=== PATIENT | male | born 1945 | race Caucasian/White ===

== ENCOUNTER → 2016-11-23 | Outpatient (CLI) | payer OTHER, MEDICARE ==
[~2016-11-23] MED LIST: ATOR-22 PO; CMD5 PO; CRDCD120 PO; HYT/2 PO; LISI20TA55 PO; METO100T44 PO
[2016-11-23 11:59] LABS: BASO % 0.8 %; BASO ABS # 0.05 K/uL (0-0.2); COMPLETE YES; EOS % 2.8 %; HEMATOCRIT 43.6 % (42-52); IG% 0.2 %; LYMPH % 33.2 %; MEAN CELL VOLUME 85.3 fL (80-100); MEAN CORPUSCULAR HEMOGLOBIN 27.8 pg (25-34); MEAN CORPUSCULAR HGB CONC 32.6 g/dl (32-36); MEAN PLATELET VOLUME 11.7 fL (7.4-10.4); MONO % 9.2 %; NEUT % 53.8 %; PLATELET COUNT 191 K/uL (130-400); RED BLOOD COUNT 5.11 M/uL (4.7-6.1); WHITE BLOOD COUNT 6.33 K/uL (4.8-10.8)
[2016-11-23 12:47] LABS: ESTIMATED AVERAGE GLUCOSE 128 mg/dl; HA1C FLAG Normal (Normal)
== END | disposition home or self-care (01) ==
LOC: C.LABBFT 08:38
PROVIDERS: ATTEND Internal Medicine
DX: E11.9 Type 2 diabetes mellitus without complications (principal); D64.9 Anemia, unspecified; I48.91 Unspecified atrial fibrillation

== ENCOUNTER → 2017-06-12 | Outpatient (CLI) | payer OTHER, MEDICARE ==
[2017-06-12 12:03] LABS: BASO % 0.9 %; BASO ABS # 0.06 K/uL (0-0.2); COMPLETE YES; EOS % 2.7 %; HEMATOCRIT 40.7 % (42-52); IG% 0.2 %; LYMPH % 30.8 %; LYMPH ABS # 2.05 K/uL (1.2-3.4); MEAN CELL VOLUME 85.3 fL (80-100); MEAN CORPUSCULAR HEMOGLOBIN 28.1 pg (25-34); MEAN CORPUSCULAR HGB CONC 32.9 g/dl (32-36); MEAN PLATELET VOLUME 11.7 fL (7.4-10.4); MONO % 8.1 %; NEUT % 57.3 %; PLATELET COUNT 170 K/uL (130-400); RED BLOOD COUNT 4.77 M/uL (4.7-6.1); WHITE BLOOD COUNT 6.66 K/uL (4.8-10.8)
[2017-06-12 12:10] LABS: ESTIMATED AVERAGE GLUCOSE 131 mg/dl; HA1C FLAG Normal (Normal)
[2017-06-12 12:15] LABS: URINE APPEARANCE CLEAR (CLEAR); URINE BILIRUBIN NEG (NEG); URINE COLOR YELLOW; URINE EPITHELIAL CELL AUTO 0-5 /lpf (0-5); URINE NITRITE NEG (NEG); URINE SPECIFIC GRAVITY 1.019 (1.000-1.030); UROBILINOGEN NEG (NEG); ZZUR CULT IF INDIC CLEAN CATCH NO
[2017-06-12 12:17] LABS: ALT/SGPT 33 U/L (12-78); BLOOD UREA NITROGEN 15 mg/dl (7-18); CALCIUM 8.6 mg/dl (8.5-10.1); CARBON DIOXIDE 26 mmol/L (21-32); CHLORIDE 105 mmol/L (98-107); CHOLESTEROL 106 mg/dl (0-200); CREATININE 1.04 mg/dl (0.60-1.40); GLUCOSE 119 mg/dl (70-99); POTASSIUM 3.3 mmol/L (3.5-5.1); SODIUM 141 mmol/L (136-145); TRIGLYCERIDES 60 mg/dl (0-150); VERY LOW DENSITY LIPOPROT CALC 12 mg/dl
[2017-06-12 12:19] LABS: MANUAL MICROSCOPIC REQUIRED? NO; REVIEW REQ? NO
[2017-06-12 12:21] LABS: ALKALINE PHOSPHATASE 90 U/L (45-117); AST/SGOT 22 U/L (15-37); CHOLESTEROL/HDL RATIO 2.3; HDL CHOLESTEROL 47 mg/dl; LDL CHOLESTEROL CALCULATED 47 mg/dl
[2017-06-12 13:00] LABS: RATIO 7.6 mcg/mg (0-30.0)
== END | disposition home or self-care (01) ==
LOC: C.LABBFT 09:52
PROVIDERS: ATTEND Internal Medicine
DX: E11.9 Type 2 diabetes mellitus without complications (principal); I35.1 Nonrheumatic aortic (valve) insufficiency; E78.5 Hyperlipidemia, unspecified; N40.0 Benign prostatic hyperplasia without lower urinary tract symptoms

== ENCOUNTER → 2017-11-25 | Outpatient (CLI) | payer OTHER, MEDICARE ==
[2017-11-25 12:47] LABS: BLOOD UREA NITROGEN 19 mg/dl (7-18); CALCIUM 8.8 mg/dl (8.5-10.1); CARBON DIOXIDE 30 mmol/L (21-32); CREATININE 1.08 mg/dl (0.60-1.40); GLUCOSE 116 mg/dl (70-99); POTASSIUM 3.4 mmol/L (3.5-5.1); SODIUM 142 mmol/L (136-145)
== END | disposition home or self-care (01) ==
LOC: C.LABBFT 09:48
PROVIDERS: ATTEND Internal Medicine
DX: E87.6 Hypokalemia (principal)

== ENCOUNTER → 2017-12-05 | Outpatient (CLI) | payer OTHER, MEDICARE ==
[2017-12-05 12:32] LABS: BASO % 0.6 %; BASO ABS # 0.04 K/uL (0-0.2); EOS % 2.8 %; EOS ABS # 0.19 K/uL (0-0.5); HEMATOCRIT 40.8 % (42-52); HEMOGLOBIN 13.3 g/dL (14.0-18.0); IG# 0.01 K/uL (0.00-0.02); LYMPH % 27.1 %; LYMPH ABS # 1.81 K/uL (1.2-3.4); MEAN CELL VOLUME 84.6 fL (80-100); MEAN CORPUSCULAR HEMOGLOBIN 27.6 pg (25-34); MEAN CORPUSCULAR HGB CONC 32.6 g/dl (32-36); MEAN PLATELET VOLUME 11.7 fL (7.4-10.4); MONO % 9.4 %; MONO ABS # 0.63 K/uL (0.11-0.59); PLATELET COUNT 168 K/uL (130-400); RED CELL DISTRIBUTION WIDTH CV 14.7 % (11.5-14.5); RED CELL DISTRIBUTION WIDTH SD 45.7 fL (36.4-46.3); WHITE BLOOD COUNT 6.68 K/uL (4.8-10.8)
[2017-12-05 12:56] LABS: HEMOGLOBIN A1C 6.3 % (4.5-5.6)
[2017-12-05 13:18] LABS: BLOOD UREA NITROGEN 17 mg/dl (7-18); CALCIUM 8.6 mg/dl (8.5-10.1); CARBON DIOXIDE 28 mmol/L (21-32); CREATININE 1.07 mg/dl (0.60-1.40); GLUCOSE 111 mg/dl (70-99); POTASSIUM 3.1 mmol/L (3.5-5.1); SODIUM 142 mmol/L (136-145)
== END | disposition home or self-care (01) ==
LOC: C.LABBFT 08:56
PROVIDERS: ATTEND Internal Medicine
DX: E11.9 Type 2 diabetes mellitus without complications (principal); D64.9 Anemia, unspecified

== ENCOUNTER → 2018-02-07 | Outpatient (CLI) | payer OTHER, MEDICARE ==
[2018-02-07 12:37] LABS: BLOOD UREA NITROGEN 19 mg/dl (7-18); CARBON DIOXIDE 24 mmol/L (21-32); CREATININE 0.99 mg/dl (0.60-1.40); GLUCOSE 111 mg/dl (70-99); SODIUM 141 mmol/L (136-145)
== END | disposition home or self-care (01) ==
LOC: C.LABBFT 09:31
PROVIDERS: ATTEND Physician Assistant Medical
DX: I10 Essential (primary) hypertension (principal)

== ENCOUNTER → 2018-03-10 | Outpatient (CLI) | payer OTHER, MEDICARE ==
[2018-03-10 12:46] LABS: BLOOD UREA NITROGEN 20 mg/dl (7-18); CALCIUM 8.9 mg/dl (8.5-10.1); CARBON DIOXIDE 24 mmol/L (21-32); CREATININE 1.07 mg/dl (0.60-1.40); GLUCOSE 113 mg/dl (70-99); POTASSIUM 4.3 mmol/L (3.5-5.1); SODIUM 141 mmol/L (136-145)
== END | disposition home or self-care (01) ==
LOC: C.LABBFT 09:16
PROVIDERS: ATTEND Physician Assistant Medical
DX: E87.6 Hypokalemia (principal)

== ENCOUNTER 2021-04-09 19:06 | Observation (INO) ==
[2021-04-09 20:28] LABS: Basophils # (auto) 0.05 K/uL (0-0.2); Basophils % (auto) 0.8 %; Eosinophils # (auto) 0.15 K/uL (0-0.5); Eosinophils % (auto) 2.3 %; Hematocrit (blood only) 38.4 % (42-52); Hemoglobin 12.4 g/dL (14.0-18.0); Immature Granulocytes # (auto) 0.01 K/uL (0.00-0.02); Immature Granulocytes % (auto) 0.2 %; Lymphocytes # (auto) 1.61 K/uL (1.2-3.4); Lymphocytes % (auto) 24.8 %; Mean Corpuscular Hgb Conc 32.3 g/dL (32-36); Mean Corpuscular Volume 89.9 fL (80-100); Mean Platelet Volume 11.4 fL (7.4-10.4); Monocytes # (auto) 0.62 K/uL (0.11-0.59); Monocytes % (auto) 9.6 %; Neutrophils # (auto) 4.04 K/uL (1.4-6.5); Neutrophils % (auto) 62.3 %; Platelet Count 228 K/uL (130-400); RDW Coefficient of Variation 16.6 % (11.5-14.5); RDW Standard Deviation 55.3 fL (36.4-46.3); Red Blood Count 4.27 M/uL (4.7-6.1); White Blood Count 6.48 K/uL (4.8-10.8)
[2021-04-09] MEDS ORDERED: NITROGLYCERIN 2% OINTMENT 30GM TUBE EXT STA (20:35)
[2021-04-09 20:40] LABS: Alanine Aminotransferase 29 U/L (12-78); BUN Creatinine Ratio 21.5 (10-20); Blood Urea Nitrogen 22 mg/dl (7-18); Calcium 8.2 mg/dl (8.5-10.1); Carbon Dioxide 26 mmol/L (21-32); Chloride 111 mmol/L (98-107); Creatinine Clr Calc Pharmacy 71.8 ml/min; Est GFR (Non-African American) 69.9 ml/min; Glucose 109 mg/dl (70-99); Lipase 141 U/L (73-393); Sodium 142 mmol/L (136-145)
[2021-04-09 20:42] LABS: Albumin Globulin Ratio 0.8 (0.9-2); Alkaline Phosphatase 121 U/L (45-117); Bilirubin,Total 0.3 mg/dl (0.2-1); Globulin 3.9 gm/dl (2.5-4.0); Total Protein 6.9 gm/dl (6.4-8.2); Troponin I < 0.015 ng/ml (0-0.045)
[2021-04-09 20:54] LABS: INR 3.3 (0.9-1.1); Partial Thromboplastin Ratio 1.4; Prothrombin Time 30.1 Seconds (9.0-12.0)
[2021-04-09 20:59] LABS: Potassium 4.3 mmol/L (3.5-5.1)
--- NOTE | 2021-04-09 22:45 | History & Physical Report ---
Date of Service April 09, 2021 Assessment & Plan (1) Left-sided chest pain: Plan: Left-sided chest pain/left arm pain/H fibrillation/hypertension/aortic insufficiency/aortic aneurysm/mitral vegetation/aortic root dilatation/mitral regurgitation- The patient will be admitted to telemetry for serial cardiac enzymes, serial EKG's, cardiac rhythm monitoring and a 2-D echocardiogram with Dopplers. Normal troponin, and no acute EKG changes Continue aspirin 81 daily, metoprolol tartrate 25 mg p.o. twice daily Klor-Con 1 once p.o. every morning nitroglycerin sublingual as needed (2) Atrial fibrillation: Plan: See above (3) AI (aortic insufficiency): Plan: See above (4) Hypertension: Plan: See above (5) Aortic aneurysm: Plan: See above (6) Mitral regurgitation: Plan: See above (7) Aortic root dilatation: Plan: See above (8) [facility] (current) use of anticoagulants: Plan: Takes warfarin 5 mg every evening, with INR upon admission 3.3. Hold tomorrow's dose, follow daily PT/INR, and tentative restart of warfarin on 04/11 (9) Diabetes mellitus, type 2: Plan: On note specific medication. Placed on Accu-Cheks before meals and at bedtime with NovoLog coverage per scale Check hemoglobin A1c (10) Hyperlipidemia: Plan: Continue atorvastatin 10 mg daily. Check a fasting lipid panel (11) Benign prostatic hyperplasia with urinary obstruction and other lower urinary tract symptoms: Plan: BPH with LUTS- Continue finasteride and Flomax, hold Terazosin. (12) Parkinsonism: Plan: Continue with Toprol levodopa History of Present Illness Chief Complaint: The patient presents to the emergency department with complaint of acute onset of left-sided chest pain and left arm pain, that was improved by 3 sublingual nitroglycerin given to him by nurses. Primary Care Provider: Venkata Gan MD The patient is a 76-year-old male with a past medical history noting aortic insufficiency, BPH with LUTS, obesity, diabetes mellitus type 2, long-term use of anticoagulants, aortic root Dillow Tat[place], mitral regurgitation, hypertension, hyperparathyroidism, hyperlipidemia, atrial fibrillation and aortic aneurysm. Patient presents with symptoms as noted above, however, because they were not completely resolved, he was sent to the ED for assessment. By the time of arrival to the ED, his symptoms have resolved, and have not recurred since. Allergies Allergy/AdvReac Type Severity Reaction Status Date / Time amoxicillin Allergy Intermediate Hives Verified 04/09/21 20:42 Home Medications Medication Instructions Recorded Confirmed Type blood sugar diagnostic (OneTouch #50 ea 11/10/20 03/15/21 Rx Verio test strips) blood-glucose meter (OneTouch #1 ea 11/10/20 03/15/21 Rx Verio Meter) lancets 30 gauge (OneTouch Delica #100 ea 11/11/20 03/15/21 Rx Lancets) warfarin 5 mg tablet 5 mg PO PM 12/17/20 04/09/21 History atorvastatin 20 mg tablet 10 mg PO HS tab 03/13/21 04/09/21 History carbidopa 25 mg-levodopa 100 mg 1 tab PO TID tab 03/13/21 04/09/21 History disintegrating tablet famotidine 20 mg tablet 20 mg PO BID 03/13/21 04/09/21 History fluoxetine 20 mg capsule 20 mg PO QAM 03/13/21 04/09/21 History folic acid 1 mg tablet 2 mg PO QAM tab 03/13/21 04/09/21 History magnesium oxide 400 mg PO QAM 03/13/21 04/09/21 History tamsulosin 0.4 mg capsule (Flomax) 0.4 mg PO HS 03/13/21 04/09/21 History acetaminophen 325 mg tablet 650 mg PO Q6H PRN 04/09/21 04/09/21 History (Tylenol) acetaminophen 325 mg tablet 650 mg PO QAM 04/09/21 04/09/21 History (Tylenol) bisacodyl 10 mg rectal suppository 10 mg GA DAILY PRN 04/09/21 04/09/21 History cyanocobalamin (vitamin B-12) 100 100 mcg PO QAM 04/09/21 04/09/21 History mcg tablet diclofenac sodium 1 % topical gel 2 - 4 g TOPICAL UD PRN 04/09/21 04/09/21 History docusate sodium 100 mg capsule 100 mg PO BID 04/09/21 04/09/21 History finasteride 5 mg tablet 5 mg PO QAM 04/09/21 04/09/21 History metoprolol tartrate 25 mg tablet 25 mg PO BID 04/09/21 04/09/21 History nitroglycerin 0.4 mg sublingual 0.4 mg SUBLINGUAL UD 04/09/21 04/09/21 History tablet polyethylene glycol 3350 17 gram 17 g PO QAM 04/09/21 04/09/21 History oral powder packet (Miralax) potassium chloride 20 mEq 20 meq PO QAM 04/09/21 04/09/21 History tablet,extended release sennosides 8.6 mg tablet (senna) 8.6 mg PO HS PRN 04/09/21 04/09/21 History simethicone 80 mg chewable tablet 80 mg PO Q6H PRN 04/09/21 04/09/21 History terazosin 5 mg capsule 5 mg PO DAILY 04/09/21 04/09/21 History Past Med/Surg History Medical History (Updated 04/09/21 @ 23:47 by Arnel Yoder MD) Aortic aneurysm Atrial fibrillation FOLLOWED BY DR. SAVAGE BPH (benign prostatic hyperplasia) Diabetes mellitus, type 2 History of skin cancer Hyperlipidemia Hyperparathyroidism Hypertension Mitral regurgitation On anticoagulant therapy Parkinsonism Surgical History History of cataract surgery RT/LEFT History of colonoscopy History of colonoscopy History of parathyroid surgery History of tooth extraction Family History Father Colon cancer Prostate cancer Stroke syndrome Colorectal cancer Family/Other Colon cancer Sister Diabetes Stroke syndrome Other No family history of adverse response to anesthesia Denies family history of Ovarian cancer Breast cancer Social History Smoking Status: Former smoker Age Started Using Tobacco: 17; Age Quit Using Tobacco: 31; packs per day: 0.5; Second Hand Exposure: No; Hx Alcohol Use: No Hx Substance Use: No Preferred Language: [place] Hearing Ability: Normal Sterile Instrument Technician Required: No Beliefs That Will Affect Care: None marital status: / Current Living Situation: Family Current Living Situation Comment: WITH SON current occupational status: retired Feels Safe at Home: Yes Childhood Exposure to Second-Hand Smoke: No caffeine: Yes Dental Care, Regularly: Yes Physical Activity Frequency: Does not Exercise Seatbelt Use: always Assistive Devices: None Review of Systems Review of Systems: The patient denies palpitations, shortness of breath, dyspnea on exertion, cough, lower extremity swelling, sore throat, fevers, chills, sweats, fatigue, nausea, vomiting, diarrhea , constipation, abdominal pain, pelvic pain, blood in urine or stool, dysuria, urinary frequency or urgency, lightheadedness, dizziness, headache, memory loss, loss of consciousness, rash, abnormal bruising or bleeding, imbalance, focal or generalized weakness, numbness or tingling in arms or legs, generalized arthralgias or myalgias, back or neck pain, or night sweats. The review of systems is otherwise negative other than for that already noted above, and at least 10 systems have been reviewed. Physical Exam Physical Exam: The patient is awake, alert and oriented 3, well developed and well nourished, normocephalic and atraumatic, lying in bed and in no acute distress. HEENT--PERRL, EOMI, mucous membranes and oropharynx normal. Neck--supple. No JVD. No bruits. Thyroid normal, trachea midline, no adenopathy. Heart--normal S1 and S2. No murmurs, rubs or gallops. Lungs--clear bilaterally, no respiratory distress, no accessory muscle use. Abdomen--normal bowel sounds and soft. Nontender. Nondistended. Extremities--no cyanosis or clubbing. No edema. Dermatologic--normal skin turgor, normal color, no abnormal lymph nodes, no rash. Neurologic--cranial nerves II through XII grossly intact. Rheumatologic--decreased range of motion left arm and left leg due to previous stroke Psychiatric--normal affect. Results & Data Results & Data ([facility]) Vital Signs (Past 12 Hours) Vital Signs Temp Pulse Resp BP Pulse Ox 04/09/21 21:30 75 20 128/75 97 04/09/21 21:00 75 19 122/70 97 04/09/21 20:30 80 26 H 127/69 98 04/09/21 20:00 69 27 H 122/67 98 04/09/21 19:30 73 31 H 106/65 97 04/09/21 19:12 75 26 H 106/67 95 04/09/21 19:08 98.6 F 68 16 106/67 97 Laboratory Results Laboratory Results WBC 6.48 K/uL (4.8-10.8) 04/09/21 19:15 RBC 4.27 M/uL (4.7-6.1) L 04/09/21 19:15 Hgb 12.4 g/dL (14.0-18.0) L 04/09/21 19:15 Hct 38.4 % (42-52) L 04/09/21 19:15 MCV 89.9 fL (80-100) 04/09/21 19:15 MCH 29.0 pg (25-34) 04/09/21 19:15 MCHC 32.3 g/dL (32-36) 04/09/21 19:15 RDW Std Deviation 55.3 fL (36.4-46.3) H 04/09/21 19:15 RDW Coeff of Amos 16.6 % (11.5-14.5) H 04/09/21 19:15 Plt Count 228 K/uL (130-400) 04/09/21 19:15 MPV 11.4 fL (7.4-10.4) H 04/09/21 19:15 Immature Gran % (Auto) 0.2 % 04/09/21 19:15 Neut % (Auto) 62.3 % 04/09/21 19:15 Lymph % (Auto) 24.8 % 04/09/21 19:15 [place] % (Auto) 9.6 % 04/09/21 19:15 Eos % (Auto) 2.3 % 04/09/21 19:15 Baso % (Auto) 0.8 % 04/09/21 19:15 Neut # (Auto) 4.04 K/uL (1.4-6.5) 04/09/21 19:15 Lymph # (Auto) 1.61 K/uL (1.2-3.4) 04/09/21 19:15 [place] # (Auto) 0.62 K/uL (0.11-0.59) H 04/09/21 19:15 Eos # (Auto) 0.15 K/uL (0-0.5) 04/09/21 19:15 Baso # (Auto) 0.05 K/uL (0-0.2) 04/09/21 19:15 Immature Gran # (Auto) 0.01 K/uL (0.00-0.02) 04/09/21 19:15 PT 30.1 Seconds (9.0-12.0) H 04/09/21 20:34 INR 3.3 (0.9-1.1) H 04/09/21 20:34 APTT 37.0 Seconds (21.0-31.0) H 04/09/21 20:34 PTT Ratio 1.4 04/09/21 20:34 Sodium 142 mmol/L (136-145) 04/09/21 19:15 Potassium 4.3 mmol/L (3.5-5.1) 04/09/21 20:34 Chloride 111 mmol/L (98-107) H 04/09/21 19:15 Carbon Dioxide 26 mmol/L (21-32) 04/09/21 19:15 Anion Gap 6.0 (3-11) 04/09/21 19:15 BUN 22 mg/dl (7-18) H 04/09/21 19:15 Creatinine 1.04 mg/dl (0.6-1.4) 04/09/21 19:15 Est Cr Clr Drug Dosing 71.8 ml/min 04/09/21 19:15 Est GFR ( Amer) 81.0 ml/min 04/09/21 19:15 Est GFR (Non-Af Amer) 69.9 ml/min 04/09/21 19:15 BUN/Creatinine Ratio 21.5 (10-20) H 04/09/21 19:15 Glucose 109 mg/dl (70-99) H 04/09/21 19:15 Calcium 8.2 mg/dl (8.5-10.1) L 04/09/21 19:15 Total Bilirubin 0.3 mg/dl (0.2-1) 04/09/21 19:15 AST 45 U/L (15-37) H 04/09/21 20:34 ALT 29 U/L (12-78) 04/09/21 19:15 Alkaline Phosphatase 121 U/L (45-117) H 04/09/21 19:15 Troponin I < 0.015 ng/ml (0-0.045) 04/09/21 19:15 Total Protein 6.9 gm/dl (6.4-8.2) 04/09/21 19:15 Albumin 3.0 gm/dl (3.4-5.0) L 04/09/21 19:15 Globulin 3.9 gm/dl (2.5-4.0) 04/09/21 19:15 Albumin/Globulin Ratio 0.8 (0.9-2) L 04/09/21 19:15 Lipase 141 U/L (73-393) 04/09/21 19:15 COVID-19 Eval Order Covid19 at [facility] 04/09/21 22:06 SARS-CoV-2 (PCR) NEGATIVE (Negative) 04/09/21 22:06 ECG Additional Comments: TAMELA GRACE ID:[id number] 09-APR-2021 19:11:39 [facility]- EDSTAT ROUTINE RETRIEVAL Atrial fibrillation Left axis deviation Right bundle branch block Abnormal ECG When compared with ECG of 30-DEC-2020 18:42, Previous ECG has undetermined rhythm, needs review Criteria for Inferior infarct are no longer Present Inverted T waves have replaced nonspecific T wave abnormality in Inferior leads 25mm/s 10mm/mV 150Hz 9.0.9 12SL 241 JUAN CARLOS: 15 Unconfirmed Vent. rate 81 BPM GA interval * ms QRS duration 150 ms QT/QTc 418/485 ms P-R-T axes * -75 -8 1945 (76 yr) Male 1in 1lb Room:7 Loc:15 Ice Cutter:Emily Elena in Code Status & VTE Plan Code Status Full code VTE Prophylaxis Plan VTE Prophylaxis will be ordered: Yes PG Care Time/CCT Total # of Minutes Spent Total Time Spent with Patient: Total time spent is greater than 50% in coordination of care (as documented) at patient's floor/unit and/or counseling patient: Coding Level of Care Code INT OBSERVATION CARE 70M LVL 3 Diagnoses AI (aortic insufficiency) I35.1 Benign prostatic hyperplasia with urinary obstruction and other lower urinary tract symptoms N40.1; N13.8 manager intermediate (current) use of anticoagulants Z79.01 Hypertension I10 Hypertension type: essential hypertension Hyperlipidemia E78.5 Atrial fibrillation I48.21 Atrial fibrillation type: permanent Aortic aneurysm I71.9 Left-sided chest pain R07.9 Aortic root dilatation I77.810 Mitral regurgitation I34.0 Diabetes mellitus, type 2 E11.9 Parkinsonism G20 (1) Hypertension Hypertension type: essential hypertension Qualified Code(s): I10 - Essential (primary) hypertension (2) Atrial fibrillation Atrial fibrillation type: permanent Qualified Code(s): I48.21 - Permanent atrial fibrillation
--- NOTE | 2021-04-09 23:24 | Emergency Department Note ---
Impression & Plan Left-sided chest pain ED Provider Note INFORMANT: Patient ED PROVIDER(S): Reinaldo Lazcano MD CHIEF COMPLAINT: Chest pain PLAN: Disposition: Admitted Condition: Good Outpatient prescription management: none Referral: None MEDICAL DECISION MAKING: Patient presented with his left-sided chest pain. He received aspirin and nitroglycerin prehospital. He received Nitropaste here in the ER. His ECG did not show any acute findings. Chest x-ray was negative. The patient's CBC and chemistry panel was unremarkable. Troponin negative. The patient had no pain on reassessment. I discussed further management in the hospital. Consultation was made with Dr. Arnel Yoder of the [facility] service. Patient was evaluated in the ER for further management. Triage Nursing notes reviewed and agree them. Vital Signs: reviewed and remarkable for no significant abnormalities Differential diagnosis: Cardiac ischemia, aortic dissection, pulmonary embolism, pneumothorax, pneumonia, pericarditis, myocarditis, esophageal rupture, GERD, cholecystitis, pancreatitis, musculoskeletal, as well as other pathologies. Diagnostics interpreted by me: ECG: Twelve-lead ECG reveals atrial fibrillation at 81 bpm. Left axis deviation and right bundle branch block present. No ST elevation. No PVCs. Cardiac Monitoring: Cardiac monitoring ordered by me: The patient was placed on continuous cardiac monitoring and observed. It revealed a atrial fibrillation at 77 beats per minute without ectopy. Imaging studies: Chest x-ray. Findings: A chest x-ray was performed and revealed no pneumothorax, effusion, infiltrate, pulmonary edema, free air under the diaphragm, or wide mediastinum. Impression: No acute disease. HPI: The patient is a 76 year old male who presents to the Emergency Room with complaints of left-sided chest pain. This started 6:00 this evening and is much improved after treatment by EMS. The patient also notes the following associated symptoms, left arm pain. The patient has been given nitroglycerin and aspirin relieving factors. Current pain is rated as 2/10. Patient has history of A. fib. No history of NM. Pt denies LOC, headache, fevers, chills, diaphoresis, visual changes, neck pain, breathing difficulties, nausea, vomiting, abdominal pain, back pain, melena, hematochezia, urinary symptoms, numbness, weakness, lymphadenopathy, rash, or other complaints. ROS: See above HPI for pertinent positives & negatives. A total of 10 systems reviewed and were otherwise negative. PAST MEDICAL HISTORY:See Below , atrial fibrillation, hypertension PAST SURGICAL HISTORY:See Below, FAMILY HISTORY:See Below SOCIAL HISTORY:See Below, resides in a nursing facility HOME MEDICATIONS:See Below ALLERGIES:See Below VITALS:See Below PHYSICAL EXAMINATION: GENERAL: Awake, alert, well-appearing, in no distress HENT: Normocephalic, atraumatic. Oropharynx unremarkable. EYES: Normal conjunctiva. Sclera non-icteric. NECK: Inspection normal. Non-tender. Supple. No nuchal rigidity. FROM. No masses. RESPIRATORY: Clear to auscultation. No wheezes. No rales. Normal respiratory effort. CARDIAC: Normal rate. Irregular rhythm. No murmurs. No rubs. Extremities warm and well perfused. Pulses equal. No JVD. GI: Soft, non-distended. No tenderness to palpation. No rebound or guarding. No masses. RECTAL: Deferred. MUSCULOSKELETAL: Atraumatic. Chest examination reveals no tenderness. The back is symmetrical on inspection without obvious abnormality. There is no CVA tenderness to palpation. No joint edema. LOWER EXTREMITIES: Calves are equal size bilaterally and non-tender. Trace edema. No discoloration. NEURO: Normal sensorium. Speech normal. SKIN: No rash or jaundice noted. Reinaldo Lazcano MD Past Med/Surg History Medical History Aortic aneurysm Atrial fibrillation BPH (benign prostatic hyperplasia) Diabetes mellitus, type 2 History of skin cancer Hyperlipidemia Hyperparathyroidism Hypertension Mitral regurgitation On anticoagulant therapy Surgical History History of cataract surgery History of colonoscopy History of colonoscopy History of parathyroid surgery History of tooth extraction Family History Father Colon cancer Prostate cancer Stroke syndrome Colorectal cancer Family/Other Colon cancer Sister Diabetes Stroke syndrome Other No family history of adverse response to anesthesia Denies family history of Ovarian cancer Breast cancer Social History Smoking Status: Former smoker Age Started Using Tobacco: 17; Age Quit Using Tobacco: 31; packs per day: 0.5; Second Hand Exposure: No; Hx Alcohol Use: No Hx Substance Use: No Preferred Language: [place] Hearing Ability: Normal Catalog Library Assistant Required: No Beliefs That Will Affect Care: None marital status: / Current Living Situation: Family Current Living Situation Comment: WITH SON current occupational status: retired Feels Safe at Home: Yes Childhood Exposure to Second-Hand Smoke: No caffeine: Yes Dental Care, Regularly: Yes Physical Activity Frequency: Does not Exercise Seatbelt Use: always Assistive Devices: None Allergies Allergies Allergy/AdvReac Type Severity Reaction Status Date / Time amoxicillin Allergy Intermediate Hives Verified 04/09/21 20:42 Home Meds Home Medications Medication Instructions Recorded Confirmed warfarin 5 mg tablet 5 mg PO PM 12/17/20 04/09/21 atorvastatin 20 mg tablet 10 mg PO HS tab 03/13/21 04/09/21 carbidopa 25 mg-levodopa 100 mg 1 tab PO TID tab 03/13/21 04/09/21 disintegrating tablet famotidine 20 mg tablet 20 mg PO BID 03/13/21 04/09/21 fluoxetine 20 mg capsule 20 mg PO QAM 03/13/21 04/09/21 folic acid 1 mg tablet 2 mg PO QAM tab 03/13/21 04/09/21 magnesium oxide 400 mg PO QAM 03/13/21 04/09/21 tamsulosin 0.4 mg capsule (Flomax) 0.4 mg PO HS 03/13/21 04/09/21 acetaminophen 325 mg tablet 650 mg PO Q6H PRN 04/09/21 04/09/21 (Tylenol) acetaminophen 325 mg tablet 650 mg PO QAM 04/09/21 04/09/21 (Tylenol) bisacodyl 10 mg rectal suppository 10 mg [place] DAILY PRN 04/09/21 04/09/21 cyanocobalamin (vitamin B-12) 100 100 mcg PO QAM 04/09/21 04/09/21 mcg tablet diclofenac sodium 1 % topical gel 2 - 4 g TOPICAL UD PRN 04/09/21 04/09/21 docusate sodium 100 mg capsule 100 mg PO BID 04/09/21 04/09/21 finasteride 5 mg tablet 5 mg PO QAM 04/09/21 04/09/21 metoprolol tartrate 25 mg tablet 25 mg PO BID 04/09/21 04/09/21 nitroglycerin 0.4 mg sublingual 0.4 mg SUBLINGUAL UD 04/09/21 04/09/21 tablet polyethylene glycol 3350 17 gram 17 g PO QAM 04/09/21 04/09/21 oral powder packet (Miralax) potassium chloride 20 mEq 20 meq PO QAM 04/09/21 04/09/21 tablet,extended release sennosides 8.6 mg tablet (senna) 8.6 mg PO HS PRN 04/09/21 04/09/21 simethicone 80 mg chewable tablet 80 mg PO Q6H PRN 04/09/21 04/09/21 terazosin 5 mg capsule 5 mg PO DAILY 04/09/21 04/09/21 Previous Rx's Medication Instructions Recorded blood sugar diagnostic (TangentixTouch #50 ea 11/10/20 Verio test strips) blood-glucose meter (TangentixTouch #1 ea 11/10/20 Verio Meter) lancets 30 gauge (OneTouch Delica #100 ea 11/11/20 Lancets) Results & Data (ED) Vital Signs Vital Signs - 24 hr 04/09/21 19:08 04/09/21 19:12 04/09/21 19:30 Temperature 37 C Temperature Source Oral Pulse Rate 68 75 73 Pulse Rate from SpO2 Sensor 78 75 Respiratory Rate 16 26 H 31 H Respiratory Effort / Characteristics Non-Labored Spontaneous Respiratory Depth Normal Blood Pressure 106/67 106/67 106/65 Blood Pressure Mean 80 80 78 Blood Pressure Position Lying Pulse Oximetry 97 95 97 Oxygen Delivery Method Room Air Room Air Room Air Sepsis Recent Fever Within 48 Hours No Sepsis New/Unexplained Change in Mental Status No Sepsis Action Taken by Nursing No Action Required 04/09/21 20:00 04/09/21 20:30 04/09/21 21:00 Temperature Temperature Source Pulse Rate 69 80 75 Pulse Rate from SpO2 Sensor 68 79 81 Respiratory Rate 27 H 26 H 19 Respiratory Effort / Characteristics Respiratory Depth Blood Pressure 122/67 127/69 122/70 Blood Pressure Mean 85 88 87 Blood Pressure Position Pulse Oximetry 98 98 97 Oxygen Delivery Method Room Air Room Air Room Air Sepsis Recent Fever Within 48 Hours Sepsis New/Unexplained Change in Mental Status Sepsis Action Taken by Nursing 04/09/21 21:30 04/09/21 22:00 04/09/21 22:30 Temperature Temperature Source Pulse Rate 75 77 77 Pulse Rate from SpO2 Sensor 84 Respiratory Rate 20 20 19 Respiratory Effort / Characteristics Respiratory Depth Blood Pressure 128/75 125/82 131/83 Blood Pressure Mean 92 96 99 Blood Pressure Position Pulse Oximetry 97 97 97 Oxygen Delivery Method Room Air Sepsis Recent Fever Within 48 Hours Sepsis New/Unexplained Change in Mental Status Sepsis Action Taken by Nursing Laboratory Data Result diagrams: 04/09/21 19:15 04/09/21 20:34 Lab Results 04/09/21 04/09/21 04/09/21 Range/Units 19:15 19:15 20:34 WBC 6.48 (4.8-10.8) K/uL RBC 4.27 L (4.7-6.1) M/uL Hgb 12.4 L (14.0-18.0) g/dL Hct 38.4 L (42-52) % MCV 89.9 (80-100) fL MCH 29.0 (25-34) pg MCHC 32.3 (32-36) g/dL RDW Std Deviation 55.3 H (36.4-46.3) fL RDW Coeff of Amos 16.6 H (11.5-14.5) % Plt Count 228 (130-400) K/uL MPV 11.4 H (7.4-10.4) fL Immature Gran % (Auto) 0.2 % Neut % (Auto) 62.3 % Lymph % (Auto) 24.8 % [place] % (Auto) 9.6 % Eos % (Auto) 2.3 % Baso % (Auto) 0.8 % Neut # (Auto) 4.04 (1.4-6.5) K/uL Lymph # (Auto) 1.61 (1.2-3.4) K/uL [place] # (Auto) 0.62 H (0.11-0.59) K/uL Eos # (Auto) 0.15 (0-0.5) K/uL Baso # (Auto) 0.05 (0-0.2) K/uL Immature Gran # (Auto) 0.01 (0.00-0.02) K/uL PT 30.1 H (9.0-12.0) Seconds INR 3.3 H (0.9-1.1) APTT 37.0 H (21.0-31.0) Seconds PTT Ratio 1.4 Sodium 142 (136-145) mmol/L Potassium (3.5-5.1) mmol/L Chloride 111 H (98-107) mmol/L Carbon Dioxide 26 (21-32) mmol/L Anion Gap 6.0 (3-11) BUN 22 H (7-18) mg/dl Creatinine 1.04 (0.6-1.4) mg/dl Est Cr Clr Drug Dosing 71.8 ml/min Est GFR ( Amer) 81.0 ml/min Est GFR (Non-Af Amer) 69.9 ml/min BUN/Creatinine Ratio 21.5 H (10-20) Glucose 109 H (70-99) mg/dl Calcium 8.2 L (8.5-10.1) mg/dl Total Bilirubin 0.3 (0.2-1) mg/dl AST (15-37) U/L ALT 29 (12-78) U/L Alkaline Phosphatase 121 H (45-117) U/L Troponin I < 0.015 (0-0.045) ng/ml Total Protein 6.9 (6.4-8.2) gm/dl Albumin 3.0 L (3.4-5.0) gm/dl Globulin 3.9 (2.5-4.0) gm/dl Albumin/Globulin Ratio 0.8 L (0.9-2) Lipase 141 (73-393) U/L COVID-19 Eval Order SARS-CoV-2 (PCR) (Negative) 04/09/21 04/09/21 04/09/21 Range/Units 20:34 22:06 22:06 WBC (4.8-10.8) K/uL RBC (4.7-6.1) M/uL Hgb (14.0-18.0) g/dL Hct (42-52) % MCV (80-100) fL MCH (25-34) pg MCHC (32-36) g/dL RDW Std Deviation (36.4-46.3) fL RDW Coeff of Amos (11.5-14.5) % Plt Count (130-400) K/uL MPV (7.4-10.4) fL Immature Gran % (Auto) % Neut % (Auto) % Lymph % (Auto) % [place] % (Auto) % Eos % (Auto) % Baso % (Auto) % Neut # (Auto) (1.4-6.5) K/uL Lymph # (Auto) (1.2-3.4) K/uL [place] # (Auto) (0.11-0.59) K/uL Eos # (Auto) (0-0.5) K/uL Baso # (Auto) (0-0.2) K/uL Immature Gran # (Auto) (0.00-0.02) K/uL PT (9.0-12.0) Seconds INR (0.9-1.1) APTT (21.0-31.0) Seconds PTT Ratio Sodium (136-145) mmol/L Potassium 4.3 (3.5-5.1) mmol/L Chloride (98-107) mmol/L Carbon Dioxide (21-32) mmol/L Anion Gap (3-11) BUN (7-18) mg/dl Creatinine (0.6-1.4) mg/dl Est Cr Clr Drug Dosing ml/min Est GFR ( Amer) ml/min Est GFR (Non-Af Amer) ml/min BUN/Creatinine Ratio (10-20) Glucose (70-99) mg/dl Calcium (8.5-10.1) mg/dl Total Bilirubin (0.2-1) mg/dl AST 45 H (15-37) U/L ALT (12-78) U/L Alkaline Phosphatase (45-117) U/L Troponin I (0-0.045) ng/ml Total Protein (6.4-8.2) gm/dl Albumin (3.4-5.0) gm/dl Globulin (2.5-4.0) gm/dl Albumin/Globulin Ratio (0.9-2) Lipase (73-393) U/L COVID-19 Eval Order Covid19 at [facility] SARS-CoV-2 (PCR) NEGATIVE (Negative) Administered Medications Discontinued Medications Nitroglycerin (Nitroglycerin 2% Ointment 30gm Tube) 0.5 inch EXT NOW STA Stop: 04/09/21 20:36 Last Admin: 04/09/21 20:43 Dose: 0.5 inch Documented by: [id number] Discharge Plan Visit Data Chief Complaint: Chest Pain Stated Complaint: Chest Pain ED Provider: Reinaldo Lazcano Discharge Problem: Left-sided chest pain Forms Stand Alone Forms: My [facility] Prescriptions Prescriptions: No Action (DME) OneTouch Verio test strips Strip See Rx Instructions .ROUTE .MEDSUPPLY Qty: 50 RF: 5 (DME) blood-glucose meter [OneTouch Verio Meter] Misc See Rx Instructions .ROUTE .MEDSUPPLY Qty: 1 RF: 0 (DME) lancets [OneTouch Delica Lancets] 30 gauge misc See Rx Instructions .ROUTE .MEDSUPPLY Qty: 100 RF: 3 atorvastatin 20 mg tablet 10 mg PO HS RF: 0 carbidopa-levodopa 25-100 mg tablet,disintegrating 1 tab PO TID RF: 0 folic acid 1 mg tablet 2 mg PO QAM RF: 0 famotidine 20 mg tablet 20 mg PO BID RF: 0 tamsulosin [Flomax] 0.4 mg capsule 0.4 mg PO HS RF: 0 fluoxetine 20 mg capsule 20 mg PO QAM RF: 0 magnesium oxide 400 mg magnesium tablet 400 mg PO QAM RF: 0 warfarin 5 mg tablet 5 mg PO PM RF: 0 terazosin 5 mg capsule 5 mg PO DAILY RF: 0 sennosides [senna] 8.6 mg Tablet 8.6 mg PO HS PRN (Reason: Constipation) RF: 0 acetaminophen [Tylenol] 325 mg Tablet 650 mg PO Q6H PRN (Reason: Pain (Scale Score 1-3)) RF: 0 acetaminophen [Tylenol] 325 mg Tablet 650 mg PO QAM RF: 0 cyanocobalamin (vitamin B-12) 100 mcg Tablet 100 mcg PO QAM RF: 0 polyethylene glycol 3350 [Miralax] 17 gram Powder In Packet 17 g PO QAM RF: 0 bisacodyl 10 mg Suppository 10 mg [place] DAILY PRN (Reason: Constipation) RF: 0 nitroglycerin 0.4 mg Tablet, Sublingual 0.4 mg sublingual UD RF: 0 docusate sodium 100 mg Capsule 100 mg PO BID RF: 0 finasteride 5 mg Tablet 5 mg PO QAM RF: 0 simethicone 80 mg Tablet,Chewable 80 mg PO Q6H PRN (Reason: flatulence) RF: 0 metoprolol tartrate 25 mg Tablet 25 mg PO BID RF: 0 diclofenac sodium [Voltaren] 1 % Gel 2 - 4 g TOPICAL UD PRN (Reason: Pain) RF: 0 potassium chloride 20 mEq tablet extended release 20 meq PO QAM RF: 0 Referrals Referrals: Venkata Gan MD [Primary Care Provider] -
[2021-04-10] MEDS ORDERED: GLUCAGON FOR INJ 1 MG VIAL SQ PRN (01:34)
[2021-04-10] MEDS ORDERED: DEXTROSE 50% 50 ML SYRINGE IV PRN (01:34)
[2021-04-10] MEDS ORDERED: SIMETHICONE 80 MG CHEW PO PRN (01:34)
[2021-04-10] MEDS ORDERED: ONDANSETRON INJ 2 MG/ML 2 ML VIAL IV PRN (01:34)
[2021-04-10] MEDS ORDERED: GLUCOSE 40% GEL 15 GM TUBE PO PRN (01:34)
[2021-04-10] MEDS ORDERED: ACETAMINOPHEN 325 MG TAB PO PRN ×2 (01:34)
[2021-04-10] MEDS ORDERED: SENNA 8.6 MG TAB PO PRN (01:34)
[2021-04-10] MEDS ORDERED: bisacodyL 10 MG SUPP PR PRN (01:34)
[2021-04-10] MEDS ORDERED: NITROGLYCERIN SL 0.4 MG/TAB TAB SL SCH (01:34)
[2021-04-10] MEDS ORDERED: CARBOHYDRATES FOR HYPOGLYCEMIA PO PRN (01:34)
[2021-04-10] MEDS ORDERED: GLUCOSE 10 TABS/TUBE PO PRN (01:34)
[2021-04-10] MEDS: METOPROLOL TARTRATE 25 MG TAB PO SCH ×2 (02:38→08:06)
[2021-04-10] MEDS: FAMOTIDINE 20 MG TAB PO SCH ×2 (02:39→08:06)
--- NOTE | 2021-04-10 08:02 | XRay Report ---
SINGLE VIEW CHEST CLINICAL HISTORY: Atypical chest pain. FINDINGS: 2 AP, portable, upright chest radiographs are obtained. No prior studies are available for comparison at the time of dictation. The examination is degraded by portable technique and patient ro tation. The heart is enlarged noting atherosclerotic calcification of the thoracic aorta. The pulmon leyda vasculature is noncongested. There is mild bibasilar scarring/atelectasis. No airspace consolidat ion or large pleural effusion is identified. No pneumothorax is seen. The skeletal structures are ost eopenic. The bony thorax is grossly intact. IMPRESSION: Cardiomegaly with no acute cardiopulmonary abnormality. ACT 112: Negative or not required by law. Electronically signed by: Doug Leyva M.D. 04/10/2021 8:01 AM
[2021-04-10] MEDS: CARBIDOPA/LEVODOPA 25/100MG TAB ODT PO SCH ×2 (08:06→13:01)
[2021-04-10] MEDS: INSULIN ASPART 100 UNITS/ML 3 ML PEN SC SCH ×2 (08:08→12:44)
[2021-04-10 08:26] LABS: Basophils # (auto) 0.06 K/uL (0-0.2); Basophils % (auto) 1.1 %; Eosinophils # (auto) 0.18 K/uL (0-0.5); Eosinophils % (auto) 3.2 %; Hematocrit (blood only) 40.7 % (42-52); Hemoglobin 13.1 g/dL (14.0-18.0); Immature Granulocytes # (auto) 0.01 K/uL (0.00-0.02); Immature Granulocytes % (auto) 0.2 %; Lymphocytes # (auto) 1.08 K/uL (1.2-3.4); Lymphocytes % (auto) 18.9 %; Mean Corpuscular Hemoglobin 28.4 pg (25-34); Mean Corpuscular Hgb Conc 32.2 g/dL (32-36); Mean Corpuscular Volume 88.1 fL (80-100); Mean Platelet Volume 10.7 fL (7.4-10.4); Monocytes # (auto) 0.49 K/uL (0.11-0.59); Monocytes % (auto) 8.6 %; Neutrophils # (auto) 3.89 K/uL (1.4-6.5); Platelet Count 187 K/uL (130-400); RDW Coefficient of Variation 16.7 % (11.5-14.5); RDW Standard Deviation 53.6 fL (36.4-46.3); Red Blood Count 4.62 M/uL (4.7-6.1); White Blood Count 5.71 K/uL (4.8-10.8)
[2021-04-10 08:49] LABS: Albumin Level 3.2 gm/dl (3.4-5.0); Creatinine Clr Calc Pharmacy 80.2 ml/min; Est GFR (Non-African American) 81.1 ml/min; Magnesium 2.2 mg/dl (1.8-2.4); Potassium 4.4 mmol/L (3.5-5.1)
[2021-04-10 08:52] LABS: Albumin Globulin Ratio 0.8 (0.9-2); Bilirubin,Total 0.4 mg/dl (0.2-1); Globulin 4.2 gm/dl (2.5-4.0); Total Protein 7.4 gm/dl (6.4-8.2)
[2021-04-10] MEDS ORDERED: CYANOCOBALAMIN (VITAMIN B-12) 100 MCG TABLET PO SCH (09:00)
[2021-04-10] MEDS ORDERED: POLYETHYLENE (MIRALAX) 17 GM PACK PO SCH (09:00)
[2021-04-10] MEDS ORDERED: ACETAMINOPHEN 325 MG TAB PO SCH (09:00)
[2021-04-10] MEDS ORDERED: MAGNESIUM OXIDE 400 MG TAB PO SCH (09:00)
[2021-04-10] MEDS ORDERED: FOLIC ACID 1 MG TAB PO SCH (09:00)
[2021-04-10] MEDS ORDERED: FINASTERIDE 5 MG TAB PO SCH (09:00)
[2021-04-10] MEDS ORDERED: FLUoxetine HCL 20 MG CAP PO SCH (09:00)
[2021-04-10] MEDS ORDERED: DOCUSATE SODIUM 100 MG CAP PO SCH (09:00)
[2021-04-10] MEDS ORDERED: POTASSIUM CHLORIDE CRTAB 20 MEQ TABCR PO SCH (09:00)
--- NOTE | 2021-04-10 10:19 | XCELERA ---
[id number] \\[email or web address]\[id number]
[2021-04-10 10:32] LABS: Estimated Average Glucose 123 mg/dl; Hemoglobin A1C 5.9 % (4.5-5.6)
--- NOTE | 2021-04-10 14:52 | Discharge Summary ---
Date of Service April 10, 2021 Admission HPI Per Admitting Provider The patient is a 76-year-old male with a past medical history noting aortic insufficiency, BPH with LUTS, obesity, diabetes mellitus type 2, long-term use of anticoagulants, aortic root Dillow Tatian, mitral regurgitation, hypertension, hyperparathyroidism, hyperlipidemia, atrial fibrillation and aortic aneurysm. Patient presents with symptoms as noted above, however, because they were not completely resolved, he was sent to the ED for assessment. By the time of arrival to the ED, his symptoms have resolved, and have not recurred since. Principal Diagnosis Chest pain -> Not a myocardial infarction. Seemed unlikely to be cardiac chest pain. Discharge Exam Constitutional WD/WN, vitals as above Eyes EOM intact bilaterally; no conjunctival abnormality ENMT external ear and nose normal, oropharynx normal Neck trachea midline, no thyromegaly normal visual inspection Respiratory normal respiratory effort, lungs clear to auscultation no respiratory distress Cardiovascular RRR, no murmur, no edema Gastrointestinal (Abdomen) Inspection/Auscultation: abdomen normal to inspection; abdomen not distended Musculoskeletal no cyanosis or clubbing, extremities motor strength 5/5 Skin no rashes, warm and dry Neurologic moves all extremities and awake Psychiatric Orientation: alert, oriented to person and cooperative Discharge Data Allergies Allergy/AdvReac Type Severity Reaction Status Date / Time amoxicillin Allergy Intermediate Hives Verified 04/09/21 20:42 Consultations 04/09/21 21:52 ED Decision to Admit Stat Hospital Course (1) Left-sided chest pain: Left-sided chest pain/left arm pain/H fibrillation/hypertension/aortic insufficiency/aortic aneurysm/mitral vegetation/aortic root dilatation/mitral regurgitation- -> Serial troponins were negative. Echo was stable from prior echo in 01/2020 and the echo done in [facility] in 01/2021. - Stress echo at [facility] in 01/2021 was non-diagnostic, but he had good heart rate elevation without any symptoms or changes in wall motion, so was considered satisfactory to r/o ischemic disease. -> Continue aspirin 81 daily, metoprolol tartrate 25 mg p.o. twice daily Klor- Con 1 once p.o. every morning nitroglycerin sublingual as needed -> Follow up with Dr. Patino for further medication changes or testing. Pain sounds more MSK to me than cardiac. He noted no improvement with nitro, but did have improvement with ASA. Chest wall was not tender, but pain had subsided the prior evening, so unclear if it would still be tender. (2) Atrial fibrillation: Rate-controlled while in the hospital. Generally HR was 60 - 80. - Continue metoprolol tartrate 25 mg PO BID (Note: This is different compared to Dr. Patino's last note when he was on Toprol XL 100 mg PO daily. Unclear why h e was switched. Patient did not know. Possibly a formulary issue?). 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 - Hold dose on 04/10, follow daily PT/INR, and tentative restart of warfarin on 04/11. (9) Diabetes mellitus, type 2: On note specific medication. Placed on Accu-Cheks before meals and at bedtime with NovoLog coverage per scale Check hemoglobin A1c (10) Hyperlipidemia: Continue atorvastatin 10 mg daily. Check a fasting lipid panel (11) Benign prostatic hyperplasia with urinary obstruction and other lower urinary tract symptoms: BPH with LUTS- Continue finasteride and Flomax, hold Terazosin. (12) Parkinsonism: Continue with Toprol levodopa Total Time Total Time Spent Total Time Spent (In Minutes): 35 Discharge Plan Discharge Items Patient Disposition: Transfer Alf Fac Reason For Visit: CHEST PAIN Discharge Diagnosis: Chest pain - Not a heart attack Activity: Resume your previous activity Non-emergency contact: Primary Care Provider Call non-emergency contact if: your symptoms worsen Follow-up/Referrals: Venkata Gan MD [Primary Care Provider] - Reno Patino MD [Physician] - (Please see Dr. Patino in 2-3 weeks.) Diet: Heart Healthy Addtl Attending Provider Instructions: Mr. Forrest, You were admitted to the hospital with chest pain. We monitored a lab test called the troponin which was negative (or normal) in all the readings. This means you *did not* have a heart attack. We also did an ultrasound of your heart that was normal. This was stable from your ultrasound of the heart here at [facility] in January 2020 as well as stable from your ultrasound at [facility] 2 months ago. You had a stress test at [facility] in January which did not indicate any active cardiac disease. Since this was so recently, we are not going repeat it as it will likely be unchanged. Your INR was a bit high (3.3) on admission, so we held your warfarin today (April 10). You can resume it tomorrow. You will need your INR checked later this week ( or Saturday) and may need to have your PCP or other physician adjust this downward a bit. Please see Dr. Patino in his office in 2-3 weeks. If you are having continued episodes of chest pain, he may alter/adjust your medications to help relieve/prevent it. He may also want to discuss further testing. Pending Studies at Discharge: No Stand-Alone Forms: My [facility] Skilled Items Patient informed of condition?: Yes DNR: Yes Discharge Level of Care: Skilled Communicable Disease: No Discharge Prognosis: Stable Lines: None Urinary Catheter: No Medications and DC Order Prescriptions: Continued (DME) OneTouch Verio test strips Strip See Rx Instructions .ROUTE .MEDSUPPLY Qty: 50 RF: 5 (DME) blood-glucose meter [OneTouch Verio Meter] Misc See Rx Instructions .ROUTE .MEDSUPPLY Qty: 1 RF: 0 (DME) lancets [OneTouch Delica Lancets] 30 gauge misc See Rx Instructions .ROUTE .MEDSUPPLY Qty: 100 RF: 3 atorvastatin 20 mg tablet 10 mg PO HS RF: 0 carbidopa-levodopa 25-100 mg tablet,disintegrating 1 tab PO TID RF: 0 folic acid 1 mg tablet 2 mg PO QAM RF: 0 famotidine 20 mg tablet 20 mg PO BID RF: 0 tamsulosin [Flomax] 0.4 mg capsule 0.4 mg PO HS RF: 0 fluoxetine 20 mg capsule 20 mg PO QAM RF: 0 magnesium oxide 400 mg magnesium tablet 400 mg PO QAM RF: 0 warfarin 5 mg tablet 5 mg PO PM RF: 0 sennosides [senna] 8.6 mg Tablet 8.6 mg PO HS PRN (Reason: Constipation) RF: 0 acetaminophen [Tylenol] 325 mg Tablet 650 mg PO Q6H PRN (Reason: Pain (Scale Score 1-3)) RF: 0 acetaminophen [Tylenol] 325 mg Tablet 650 mg PO QAM RF: 0 cyanocobalamin (vitamin B-12) 100 mcg Tablet 100 mcg PO QAM RF: 0 polyethylene glycol 3350 [Miralax] 17 gram Powder In Packet 17 g PO QAM RF: 0 bisacodyl 10 mg Suppository 10 mg [place] DAILY PRN (Reason: Constipation) RF: 0 nitroglycerin 0.4 mg Tablet, Sublingual 0.4 mg sublingual UD RF: 0 docusate sodium 100 mg Capsule 100 mg PO BID RF: 0 finasteride 5 mg Tablet 5 mg PO QAM RF: 0 simethicone 80 mg Tablet,Chewable 80 mg PO Q6H PRN (Reason: flatulence) RF: 0 metoprolol tartrate 25 mg Tablet 25 mg PO BID RF: 0 diclofenac sodium 1 % Gel 2 - 4 g TOPICAL UD PRN (Reason: Pain) RF: 0 potassium chloride 20 mEq tablet extended release 20 meq PO QAM RF: 0 Discontinued terazosin 5 mg capsule 5 mg PO DAILY RF: 0 Discharge Orders: Discharge Order (Routine); Ordered 04/10/21 Ordered By: Ceferino Liu Admission Data Admit Date/Time: 04/09/21 22:45 Attending Provider: Ceferino Liu Admit Provider: Arnel Yoder Primary Care Provider: Venkata Gan Other Providers: Ceferino Liu ; Victor M Sims [place] Other Interventions: Discharge Summary Assessment (RN) Last Done: 04/10/21 12:14 Coding Level of Care Code D/C DAY MANAGEMENT >30 MINS Diagnoses Left-sided chest pain R07.9 Atrial fibrillation I48.21 Atrial fibrillation type: permanent AI (aortic insufficiency) I35.1 Hypertension I10 Hypertension type: essential hypertension Aortic aneurysm I71.9 Mitral regurgitation I34.0 Aortic root dilatation I77.810 termite treater helper (current) use of anticoagulants Z79.01 Diabetes mellitus, type 2 E11.9 Hyperlipidemia E78.5 Benign prostatic hyperplasia with urinary obstruction and other lower urinary tract symptoms N40.1; N13.8 Parkinsonism G20
[2021-04-10] MEDS ORDERED: TAMSULOSIN HCL 0.4 MG CAP PO SCH (21:00)
[2021-04-10] MEDS ORDERED: ATORVASTATIN 10 MG TAB PO SCH (21:00)
--- NOTE | 2021-04-11 05:52 | Electrocardiogram Report ---
Test Reason : Blood Pressure : / mmHG Vent. Rate : 081 BPM Atrial Rate : 105 BPM P-R Int : 000 ms QRS Dur : 150 ms QT Int : 418 ms P-R-T Axes : 000 -75 -08 degrees QTc Int : 485 ms Atrial fibrillation Left axis deviation Right bundle branch block Abnormal ECG When compared with ECG of 30-DEC-2020 18:42, Criteria for Inferior infarct are no longer Present Inverted T waves have replaced nonspecific T wave abnormality in Inferior leads Confirmed by Rodrigue Bryant ([id number]) on 04/11/2021 5:52:03 AM Referred By: REFERRED SELF Confirmed By:Rodrigue Bryant
--- NOTE | 2021-04-11 06:32 | Electrocardiogram Report ---
Test Reason : Blood Pressure : / mmHG Vent. Rate : 078 BPM Atrial Rate : 202 BPM P-R Int : 000 ms QRS Dur : 164 ms QT Int : 430 ms P-R-T Axes : 000 -76 019 degrees QTc Int : 490 ms Atrial fibrillation Right bundle branch block Left anterior fascicular block Bifascicular block Septal infarct , age undetermined Abnormal ECG When compared with ECG of 09-APR-2021 19:11, Septal infarct is now Present Confirmed by Rodrigue Bryant ([id number]) on 04/11/2021 6:31:56 AM Referred By: REFERRED SELF Confirmed By:Rodrigue Bryant
[2021-04-11] MEDS ORDERED: WARFARIN SOD 5 MG TAB PO SCH (16:00)
== END 2021-04-10 14:10 ==
LOC: 2S 19:06 → ED 19:06 → SUATTDRO 22:45 → 2S 04-10 00:51